=== PATIENT | female | born 1985 | race Caucasian/White ===

== ENCOUNTER 2017-09-28 03:26 | Emergency (ER) | payer MEDICAID, OTHER ==
[2017-09-28 03:58] LABS: URINE BLOOD (Dip) POC 3+ (NEGATIVE); URINE GLUCOSE (Dip) POC Negative (NEGATIVE); URINE KETONES (Dip) POC Negative (NEGATIVE); URINE LEUKOCYTE EST (Dip) POC Negative (NEGATIVE); URINE NITRITE (Dip) POC Negative (NEGATIVE); URINE TOTAL PROTEIN POC Trace (NEGATIVE)
[2017-09-28 03:58] LABS: URINE PH (Dip) POC 5.5 (5.0-8.5)
[2017-09-28] MEDS: IBUPROFEN 800 MG TAB PO (04:31)
== END 2017-09-28 04:38 | disposition home or self-care (01) ==
LOC: FTE 03:26
DX: N93.9 Abnormal uterine and vaginal bleeding, unspecified (principal)
CPT/HCPCS: 81003; 81025; 99283